=== PATIENT | male | born 1975 | race Caucasian/White ===

== ENCOUNTER 2020-06-28 07:03 | Emergency (ER) | payer OTHER ==
[2020-06-28] MEDS ORDERED: IBUPROFEN600 MG PO (09:35)
== END 2020-06-28 10:32 | disposition home or self-care (01) ==
LOC: ER1 07:03
DX: M25.572 Pain in left ankle and joints of left foot (principal); Z87.828 Personal history of other (healed) physical injury and trauma
CPT/HCPCS: 73610; 73630; 99283

== ENCOUNTER 2021-07-19 14:39 | Emergency (ER) | payer OTHER ==
[~2021-07-19 14:39] MED LIST: IBUPROFEN600 MG PO
[2021-07-19 15:41] LABS: HEMOGLOBIN 14.1 gm/dl (14.0-17.5); RED BLOOD COUNT 4.28 M/UL (4.20-5.50); WHITE BLOOD COUNT 9.1 K/UL (4.5-11.0)
[2021-07-19 16:02] LABS: BUN/CREATININE RATIO 12 (0-10)
[2021-07-19] MEDS ORDERED: ZOFRAN ODT 4 MG4 MG SL (18:12)
== END 2021-07-20 07:54 | disposition home or self-care (01) ==
LOC: ER1 14:39
PROVIDERS: Emergency Medicine
DX: U07.1 COVID-19 (principal); F10.129 Alcohol abuse with intoxication, unspecified
CPT/HCPCS: 36600; 70450; 71045; 80053; 80307; 81001; 82803; 82962; 83605; 83735; 85025; 87086; 96374; 99285; G0480; J3411; J3475; J7030; U0002